=== PATIENT | male | born 1960 | race African-American/Black ===

== ENCOUNTER 2017-08-24 15:48 | Inpatient (IN) | payer OTHER ==
[2017-08-24 16:59] VITALS: BMI 26.2
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
[2017-08-24] MEDS ORDERED: CYCLOBENZAPRINE HCL 5 MG TABLET PO PRN (21:07)
[2017-08-24] MEDS ORDERED: MAGNESIUM CITRATE 300 ML BOTTLE PO PRN (21:10)
[2017-08-24] MEDS ORDERED: NICOTINE POLACRILEX 2 MG GUM BC PRN (21:10)
[2017-08-24] MEDS ORDERED: P-EPHED 60MG/TRIPROLIDI 2.5MG TABLET PO PRN (21:10)
[2017-08-24] MEDS ORDERED: LOPERAMIDE HCL 2 MG CAPSULE PO PRN (21:10)
[2017-08-24] MEDS ORDERED: MAG HYDROX/AL HYDROX/SIMETH 30 ML UNIT-DOSE CUP PO PRN (21:10)
[2017-08-24] MEDS ORDERED: MENTHOL/PHENOL 1 EACH UD MM PRN (21:10)
[2017-08-24] MEDS ORDERED: guaiFENesin/D-METHORPHAN HB 10 ML UNIT-DOSE CUPS PO PRN (21:10)
[2017-08-24] MEDS: THIAMINE HCL 100 MG TABLET (FP) PO SCH (23:39)
[2017-08-24] MEDS: hydrOXYzine PAMOATE 50 MG CAPSULE (FP) PO PRN (23:42)
[2017-08-24] MEDS: MELATONIN 5 MG TABLETS PO PRN (23:42)
[2017-08-24] MEDS: IBUPROFEN 600 MG TABLET (FP) PO PRN (23:43)
[2017-08-24] MEDS: LIDOCAINE 5% TOPICAL PATCH TP SCH (23:49)
[2017-08-24] MEDS: HYDROCORTISONE 0.5% TOPICAL OINTMENT TUBE TP SCH (23:49)
[2017-08-24] MEDS: LIDOCAINE PATCH REMOVAL MC SCH (23:50)
[2017-08-25] LABS: URINE APPEARANCE CLEAR; URINE BILIRUBIN NEGATIVE (<2.0 mg/dL); URINE COLOR YELLOW; URINE GLUCOSE (UA) NEGATIVE (NEGATIVE); URINE KETONE TRACE (NEGATIVE); URINE LEUK ESTERASE NEGATIVE (NEGATIVE); URINE NITRITE NEGATIVE (NEGATIVE); URINE PROTEIN NEGATIVE (NEGATIVE); URINE UROBILINOGEN NEGATIVE mg/dL (0.2-1.0)
[2017-08-25] MEDS ORDERED: TUBERCULIN PPD 5 TU/0.1ML VIAL ID ONE (00:32)
[2017-08-25] MEDS: hydrOXYzine PAMOATE 50 MG CAPSULE (FP) PO PRN (07:38)
[2017-08-25] MEDS: IBUPROFEN 600 MG TABLET (FP) PO PRN (07:38)
[2017-08-25] MEDS: NICOTINE 14 MG/24 HOURS TOPICAL PATCH TD SCH (09:49)
[2017-08-25] MEDS: NIFEdipine E.R. 90 MG TABLET (FP) PO SCH (09:49)
[2017-08-25] MEDS: PRENATAL VITAMINS W/ FOLIC ACID TABLET (FP) PO SCH (09:49)
[2017-08-25] MEDS: LIDOCAINE 5% TOPICAL PATCH TP SCH (09:50)
[2017-08-25] MEDS: HYDROCORTISONE 0.5% TOPICAL OINTMENT TUBE TP SCH ×2 (09:50→21:36)
[2017-08-25 10:05] LABS: HEMATOCRIT 37.1 % (35.4-49); HEMOGLOBIN 12.5 GM/dL (11.7-16.9); MCH 29.7 pg (25.7-33.7); MCHC 33.6 g/dl (32.0-35.9); MEAN CELL VOLUME 88.4 fl (80-96); MEAN PLT VOLUME 7.6 fl (7.5-11.1); PLATELET COUNT 301 K/MM3 (134-434); RDW 15.7 % (11.9-15.9); WHITE BLOOD COUNT 7.2 K/mm3 (4.0-10.0)
[2017-08-25 10:21] LABS: ALBUMIN 3.9 g/dl (3.4-5.0); ANION GAP 8 (8-16); BILIRUBIN,TOTAL 0.2 mg/dL (0.2-1.0); BLOOD UREA NITROGEN 19 mg/dL (7-18); CALCIUM 10.5 mg/dL (8.5-10.1); CHLORIDE 106 mmol/L (98-107); CO2 26 mmol/L (21-32); CREATININE 0.9 mg/dL (0.7-1.3); GLUCOSE,RANDOM 118 mg/dL (74-106); POTASSIUM 4.2 mmol/L (3.5-5.1); SGOT/AST 16 U/L (15-37); SGPT/ALT 26 U/L (12-78); SODIUM 140 mmol/L (136-145)
[2017-08-25 10:22] LABS: ALK PHOS 84 U/L (45-117); TOT PROT 7.8 g/dl (6.4-8.2)
--- NOTE | 2017-08-25 13:31 | EKG ---
Test Reason : Blood Pressure : / mmHG Vent. Rate : 083 BPM Atrial Rate : 083 BPM P-R Int : 144 ms QRS Dur : 088 ms QT Int : 390 ms P-R-T Axes : 060 017 023 degrees QTc Int : 458 ms NORMAL SINUS RHYTHM NORMAL ECG NO PREVIOUS ECGS AVAILABLE Confirmed by GUILLERMINA MAYA MD ([id number]) on 08/25/2017 1:31:14 PM Referred By: Confirmed By:GUILLERMINA MAYA MD
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
[2017-08-25] MEDS ORDERED: ONDANSETRON *ODT* 4 MG TABLET SL ONE (15:15)
[2017-08-25] MEDS ORDERED: ONDANSETRON *ODT* 4 MG TABLET SL PRN (15:15)
--- NOTE | 2017-08-25 15:19 | PN ---
BHS Progress Note (SOAP) Subjective: c/o opioid with alcohol withdrwwal sx at ths time, consitpation refusing suboxoen mat Objective: 08/25/17 15:18 Vital Signs - 24 hr 08/24/17 08/25/17 08/25/17 16:57 00:38 00:40 Temperature 98.3 F 99.9 F H Pulse Rate 75 107 H Respiratory 20 20 18 Rate Blood Pressure 169/98 147/93 08/25/17 08/25/17 03:30 07:03 Temperature 98.2 F Pulse Rate 88 Respiratory 18 18 Rate Blood Pressure 143/87 Laboratory Tests 08/24/17 08/25/17 08/25/17 22:30 08:35 08:35 WBC 7.2 RBC 4.20 Hgb 12.5 Hct 37.1 MCV 88.4 MCH 29.7 MCHC 33.6 RDW 15.7 Plt Count 301 MPV 7.6 D Sodium 140 Potassium 4.2 Chloride 106 Carbon Dioxide 26 Anion Gap 8 BUN 19 H D Creatinine 0.9 Creat Clearance w eGFR > 60 Random Glucose 118 H Calcium 10.5 H Total Bilirubin 0.2 D AST 16 ALT 26 D Alkaline Phosphatase 84 Total Protein 7.8 Albumin 3.9 Urine Color Yellow Urine Appearance Clear Urine pH 5.0 Ur Specific [place] 1.018 Urine Protein Negative Urine Glucose (UA) Negative Urine Ketones Trace H Urine Blood Negative Urine Nitrite Negative Urine Bilirubin Negative Urine Urobilinogen Negative Ur Leukocyte Esterase Negative NAD, a and ox3 Assessment: 08/25/17 15:18 protracted withdrwal sx, zofranprn, flexeril, colace, sympotmatic relief s patient refusing mat ordere, fluids, ensure as per patietn request.
[2017-08-25] MEDS: CYCLOBENZAPRINE HCL 5 MG TABLET PO SCH ×2 (16:24→21:35)
[2017-08-25] MEDS: PANTOPRAZOLE 40 MG TABLET (FP) PO SCH (16:24)
[2017-08-25] MEDS: DOCUSATE SODIUM 100 MG CAPSULE (FP) PO SCH (21:35)
[2017-08-25] MEDS: NAPROXEN 500 MG TABLET (FP) PO SCH (21:35)
[2017-08-25] MEDS: MIRTAZAPINE 15 MG TABLET (FP) PO SCH (21:35)
[2017-08-25] MEDS: THIAMINE HCL 100 MG TABLET (FP) PO SCH (21:37)
[2017-08-25] MEDS: LIDOCAINE PATCH REMOVAL MC SCH (21:37)
[2017-08-26] MEDS: CYCLOBENZAPRINE HCL 5 MG TABLET PO SCH ×3 (06:39→21:23)
[2017-08-26] MEDS: PRENATAL VITAMINS W/ FOLIC ACID TABLET (FP) PO SCH (10:04)
[2017-08-26] MEDS: NIFEdipine E.R. 90 MG TABLET (FP) PO SCH (10:04)
[2017-08-26] MEDS: NAPROXEN 500 MG TABLET (FP) PO SCH ×2 (10:04→21:23)
[2017-08-26] MEDS: PANTOPRAZOLE 40 MG TABLET (FP) PO SCH (10:04)
[2017-08-26] MEDS: LIDOCAINE 5% TOPICAL PATCH TP SCH (10:05)
[2017-08-26] MEDS: NICOTINE 14 MG/24 HOURS TOPICAL PATCH TD SCH (10:05)
[2017-08-26] MEDS: HYDROCORTISONE 0.5% TOPICAL OINTMENT TUBE TP SCH ×2 (10:07→21:24)
[2017-08-26] MEDS: ACETAMINOPHEN 325 MG TABLET (FP) PO PRN (14:24)
[2017-08-26] MEDS: MAGNESIUM HYDROX 2400MG/30ML ORAL SUSPENSION 30 ML CUP PO PRN (14:26)
[2017-08-26] MEDS: MIRTAZAPINE 15 MG TABLET (FP) PO SCH (21:23)
[2017-08-26] MEDS: THIAMINE HCL 100 MG TABLET (FP) PO SCH (21:23)
[2017-08-26] MEDS: DOCUSATE SODIUM 100 MG CAPSULE (FP) PO SCH (21:23)
[2017-08-26] MEDS: LIDOCAINE PATCH REMOVAL MC SCH (21:24)
[2017-08-27] MEDS: CYCLOBENZAPRINE HCL 5 MG TABLET PO SCH ×3 (07:18→21:12)
[2017-08-27] MEDS: NIFEdipine E.R. 90 MG TABLET (FP) PO SCH (09:34)
[2017-08-27] MEDS: LIDOCAINE 5% TOPICAL PATCH TP SCH (09:34)
[2017-08-27] MEDS: PANTOPRAZOLE 40 MG TABLET (FP) PO SCH (09:34)
[2017-08-27] MEDS: NAPROXEN 500 MG TABLET (FP) PO SCH ×2 (09:34→21:12)
[2017-08-27] MEDS: HYDROCORTISONE 0.5% TOPICAL OINTMENT TUBE TP SCH ×2 (09:35→21:13)
[2017-08-27] MEDS: NICOTINE 14 MG/24 HOURS TOPICAL PATCH TD SCH (09:37)
[2017-08-27] MEDS: PRENATAL VITAMINS W/ FOLIC ACID TABLET (FP) PO SCH (09:37)
[2017-08-27] MEDS: MAGNESIUM HYDROX 2400MG/30ML ORAL SUSPENSION 30 ML CUP PO PRN (11:52)
[2017-08-27] MEDS: DOCUSATE SODIUM 100 MG CAPSULE (FP) PO SCH (21:12)
[2017-08-27] MEDS: MIRTAZAPINE 15 MG TABLET (FP) PO SCH (21:12)
[2017-08-27] MEDS: LIDOCAINE PATCH REMOVAL MC SCH (21:13)
[2017-08-27] MEDS: THIAMINE HCL 100 MG TABLET (FP) PO SCH (21:13)
[2017-08-28] MEDS: CYCLOBENZAPRINE HCL 5 MG TABLET PO SCH ×3 (07:27→21:17)
[2017-08-28] MEDS: PRENATAL VITAMINS W/ FOLIC ACID TABLET (FP) PO SCH (09:44)
[2017-08-28] MEDS: NIFEdipine E.R. 90 MG TABLET (FP) PO SCH (09:44)
[2017-08-28] MEDS: LIDOCAINE 5% TOPICAL PATCH TP SCH (09:44)
[2017-08-28] MEDS: NAPROXEN 500 MG TABLET (FP) PO SCH ×2 (09:44→21:16)
[2017-08-28] MEDS: HYDROCORTISONE 0.5% TOPICAL OINTMENT TUBE TP SCH ×2 (09:45→21:17)
[2017-08-28] MEDS: PANTOPRAZOLE 40 MG TABLET (FP) PO SCH (09:47)
[2017-08-28] MEDS: NICOTINE 14 MG/24 HOURS TOPICAL PATCH TD SCH (09:47)
[2017-08-28] MEDS: ACETAMINOPHEN 325 MG TABLET (FP) PO PRN (14:04)
[2017-08-28] MEDS: MIRTAZAPINE 15 MG TABLET (FP) PO SCH (21:16)
[2017-08-28] MEDS: THIAMINE HCL 100 MG TABLET (FP) PO SCH (21:16)
[2017-08-28] MEDS: MELATONIN 5 MG TABLETS PO PRN (21:17)
[2017-08-28] MEDS: DOCUSATE SODIUM 100 MG CAPSULE (FP) PO SCH (21:17)
[2017-08-28] MEDS: LIDOCAINE PATCH REMOVAL MC SCH (21:19)
[2017-08-29] MEDS: CYCLOBENZAPRINE HCL 5 MG TABLET PO SCH ×3 (06:41→21:26)
[2017-08-29] MEDS: NAPROXEN 500 MG TABLET (FP) PO SCH ×2 (10:31→21:26)
[2017-08-29] MEDS: PRENATAL VITAMINS W/ FOLIC ACID TABLET (FP) PO SCH (10:31)
[2017-08-29] MEDS: HYDROCORTISONE 0.5% TOPICAL OINTMENT TUBE TP SCH ×2 (10:31→21:26)
[2017-08-29] MEDS: PANTOPRAZOLE 40 MG TABLET (FP) PO SCH (10:31)
[2017-08-29] MEDS: NIFEdipine E.R. 90 MG TABLET (FP) PO SCH (10:31)
[2017-08-29] MEDS: NICOTINE 14 MG/24 HOURS TOPICAL PATCH TD SCH (10:32)
[2017-08-29] MEDS: LIDOCAINE 5% TOPICAL PATCH TP SCH (10:32)
[2017-08-29] MEDS: MIRTAZAPINE 15 MG TABLET (FP) PO SCH (21:26)
[2017-08-29] MEDS: MELATONIN 5 MG TABLETS PO PRN (21:26)
[2017-08-29] MEDS: DOCUSATE SODIUM 100 MG CAPSULE (FP) PO SCH (21:26)
[2017-08-29] MEDS: LIDOCAINE PATCH REMOVAL MC SCH (21:27)
[2017-08-29] MEDS: THIAMINE HCL 100 MG TABLET (FP) PO SCH (21:28)
[2017-08-30] MEDS: CYCLOBENZAPRINE HCL 5 MG TABLET PO SCH ×3 (06:38→21:20)
[2017-08-30] MEDS: NAPROXEN 500 MG TABLET (FP) PO SCH ×2 (09:45→21:20)
[2017-08-30] MEDS: NIFEdipine E.R. 90 MG TABLET (FP) PO SCH (09:45)
[2017-08-30] MEDS: PRENATAL VITAMINS W/ FOLIC ACID TABLET (FP) PO SCH (09:45)
[2017-08-30] MEDS: PANTOPRAZOLE 40 MG TABLET (FP) PO SCH (09:45)
[2017-08-30] MEDS: NICOTINE 14 MG/24 HOURS TOPICAL PATCH TD SCH (09:46)
[2017-08-30] MEDS: LIDOCAINE 5% TOPICAL PATCH TP SCH (09:47)
[2017-08-30] MEDS: HYDROCORTISONE 0.5% TOPICAL OINTMENT TUBE TP SCH ×2 (09:47→21:21)
[2017-08-30] MEDS: ACETAMINOPHEN 325 MG TABLET (FP) PO PRN (14:25)
[2017-08-30] MEDS: DOCUSATE SODIUM 100 MG CAPSULE (FP) PO SCH (21:20)
[2017-08-30] MEDS: MELATONIN 5 MG TABLETS PO PRN (21:20)
[2017-08-30] MEDS: MIRTAZAPINE 15 MG TABLET (FP) PO SCH (21:20)
[2017-08-30] MEDS: LIDOCAINE PATCH REMOVAL MC SCH (21:21)
[2017-08-30] MEDS: THIAMINE HCL 100 MG TABLET (FP) PO SCH (21:22)
[2017-08-31] MEDS: CYCLOBENZAPRINE HCL 5 MG TABLET PO SCH ×3 (06:10→21:17)
[2017-08-31] MEDS: HYDROCORTISONE 0.5% TOPICAL OINTMENT TUBE TP SCH ×2 (09:53→21:17)
[2017-08-31] MEDS: NICOTINE 14 MG/24 HOURS TOPICAL PATCH TD SCH (09:53)
[2017-08-31] MEDS: PANTOPRAZOLE 40 MG TABLET (FP) PO SCH (09:53)
[2017-08-31] MEDS: NIFEdipine E.R. 90 MG TABLET (FP) PO SCH (09:53)
[2017-08-31] MEDS: LIDOCAINE 5% TOPICAL PATCH TP SCH (09:53)
[2017-08-31] MEDS: NAPROXEN 500 MG TABLET (FP) PO SCH ×2 (09:53→21:17)
[2017-08-31] MEDS: PRENATAL VITAMINS W/ FOLIC ACID TABLET (FP) PO SCH (09:53)
[2017-08-31] MEDS: ACETAMINOPHEN 325 MG TABLET (FP) PO PRN (14:17)
[2017-08-31] MEDS: LIDOCAINE PATCH REMOVAL MC SCH (21:17)
[2017-08-31] MEDS: MELATONIN 5 MG TABLETS PO PRN (21:17)
[2017-08-31] MEDS: DOCUSATE SODIUM 100 MG CAPSULE (FP) PO SCH (21:17)
[2017-08-31] MEDS: MIRTAZAPINE 15 MG TABLET (FP) PO SCH (21:17)
[2017-08-31] MEDS: THIAMINE HCL 100 MG TABLET (FP) PO SCH (21:17)
[2017-09-01] MEDS: CYCLOBENZAPRINE HCL 5 MG TABLET PO SCH ×3 (06:06→21:43)
[2017-09-01] MEDS: PRENATAL VITAMINS W/ FOLIC ACID TABLET (FP) PO SCH (10:08)
[2017-09-01] MEDS: PANTOPRAZOLE 40 MG TABLET (FP) PO SCH (10:08)
[2017-09-01] MEDS: NAPROXEN 500 MG TABLET (FP) PO SCH ×2 (10:08→21:43)
[2017-09-01] MEDS: NIFEdipine E.R. 90 MG TABLET (FP) PO SCH (10:08)
[2017-09-01] MEDS: NICOTINE 14 MG/24 HOURS TOPICAL PATCH TD SCH (10:08)
[2017-09-01] MEDS: LIDOCAINE 5% TOPICAL PATCH TP SCH (10:09)
[2017-09-01] MEDS: HYDROCORTISONE 0.5% TOPICAL OINTMENT TUBE TP SCH ×2 (10:10→21:44)
[2017-09-01] MEDS: MELATONIN 5 MG TABLETS PO PRN (21:43)
[2017-09-01] MEDS: MIRTAZAPINE 15 MG TABLET (FP) PO SCH (21:43)
[2017-09-01] MEDS: THIAMINE HCL 100 MG TABLET (FP) PO SCH (21:43)
[2017-09-01] MEDS: DOCUSATE SODIUM 100 MG CAPSULE (FP) PO SCH (21:43)
[2017-09-01] MEDS: LIDOCAINE PATCH REMOVAL MC SCH (21:44)
[2017-09-02] MEDS: CYCLOBENZAPRINE HCL 5 MG TABLET PO SCH ×3 (06:04→21:29)
[2017-09-02] MEDS: PANTOPRAZOLE 40 MG TABLET (FP) PO SCH (09:43)
[2017-09-02] MEDS: NAPROXEN 500 MG TABLET (FP) PO SCH ×2 (09:43→21:29)
[2017-09-02] MEDS: NIFEdipine E.R. 90 MG TABLET (FP) PO SCH (09:43)
[2017-09-02] MEDS: PRENATAL VITAMINS W/ FOLIC ACID TABLET (FP) PO SCH (09:43)
[2017-09-02] MEDS: HYDROCORTISONE 0.5% TOPICAL OINTMENT TUBE TP SCH ×2 (09:44→21:31)
[2017-09-02] MEDS: LIDOCAINE 5% TOPICAL PATCH TP SCH (09:45)
[2017-09-02] MEDS: NICOTINE 14 MG/24 HOURS TOPICAL PATCH TD SCH (09:46)
[2017-09-02] MEDS: DOCUSATE SODIUM 100 MG CAPSULE (FP) PO SCH (21:29)
[2017-09-02] MEDS: THIAMINE HCL 100 MG TABLET (FP) PO SCH (21:29)
[2017-09-02] MEDS: MELATONIN 5 MG TABLETS PO PRN (21:29)
[2017-09-02] MEDS: MIRTAZAPINE 15 MG TABLET (FP) PO SCH (21:30)
[2017-09-02] MEDS: LIDOCAINE PATCH REMOVAL MC SCH (21:31)
[2017-09-03] MEDS: CYCLOBENZAPRINE HCL 5 MG TABLET PO SCH ×3 (06:39→21:23)
[2017-09-03] MEDS: PANTOPRAZOLE 40 MG TABLET (FP) PO SCH (09:50)
[2017-09-03] MEDS: HYDROCORTISONE 0.5% TOPICAL OINTMENT TUBE TP SCH ×2 (09:50→21:23)
[2017-09-03] MEDS: PRENATAL VITAMINS W/ FOLIC ACID TABLET (FP) PO SCH (09:50)
[2017-09-03] MEDS: NICOTINE 14 MG/24 HOURS TOPICAL PATCH TD SCH (09:50)
[2017-09-03] MEDS: NIFEdipine E.R. 90 MG TABLET (FP) PO SCH (09:50)
[2017-09-03] MEDS: NAPROXEN 500 MG TABLET (FP) PO SCH ×2 (09:50→21:21)
[2017-09-03] MEDS: LIDOCAINE 5% TOPICAL PATCH TP SCH (09:51)
[2017-09-03] MEDS: MELATONIN 5 MG TABLETS PO PRN (21:21)
[2017-09-03] MEDS: MIRTAZAPINE 15 MG TABLET (FP) PO SCH (21:21)
[2017-09-03] MEDS: DOCUSATE SODIUM 100 MG CAPSULE (FP) PO SCH (21:21)
[2017-09-03] MEDS: THIAMINE HCL 100 MG TABLET (FP) PO SCH (21:22)
[2017-09-03] MEDS: LIDOCAINE PATCH REMOVAL MC SCH (21:23)
[2017-09-04] MEDS: ACETAMINOPHEN 325 MG TABLET (FP) PO PRN (06:00)
[2017-09-04] MEDS: CYCLOBENZAPRINE HCL 5 MG TABLET PO SCH ×3 (06:00→21:23)
[2017-09-04] MEDS: PRENATAL VITAMINS W/ FOLIC ACID TABLET (FP) PO SCH (09:42)
[2017-09-04] MEDS: PANTOPRAZOLE 40 MG TABLET (FP) PO SCH (09:42)
[2017-09-04] MEDS: NIFEdipine E.R. 90 MG TABLET (FP) PO SCH (09:42)
[2017-09-04] MEDS: NAPROXEN 500 MG TABLET (FP) PO SCH ×2 (09:42→21:23)
[2017-09-04] MEDS: HYDROCORTISONE 0.5% TOPICAL OINTMENT TUBE TP SCH ×2 (09:42→21:25)
[2017-09-04] MEDS: LIDOCAINE 5% TOPICAL PATCH TP SCH (09:43)
[2017-09-04] MEDS: NICOTINE 14 MG/24 HOURS TOPICAL PATCH TD SCH (09:43)
[2017-09-04] MEDS: DOCUSATE SODIUM 100 MG CAPSULE (FP) PO SCH (21:23)
[2017-09-04] MEDS: MIRTAZAPINE 15 MG TABLET (FP) PO SCH (21:23)
[2017-09-04] MEDS: THIAMINE HCL 100 MG TABLET (FP) PO SCH (21:24)
[2017-09-04] MEDS: MELATONIN 5 MG TABLETS PO PRN (21:24)
[2017-09-04] MEDS: LIDOCAINE PATCH REMOVAL MC SCH (21:25)
[2017-09-05] MEDS: CYCLOBENZAPRINE HCL 5 MG TABLET PO SCH ×3 (06:04→21:29)
[2017-09-05] MEDS: NAPROXEN 500 MG TABLET (FP) PO SCH ×2 (09:40→21:30)
[2017-09-05] MEDS: PANTOPRAZOLE 40 MG TABLET (FP) PO SCH (09:40)
[2017-09-05] MEDS: NIFEdipine E.R. 90 MG TABLET (FP) PO SCH (09:40)
[2017-09-05] MEDS: PRENATAL VITAMINS W/ FOLIC ACID TABLET (FP) PO SCH (09:40)
[2017-09-05] MEDS: HYDROCORTISONE 0.5% TOPICAL OINTMENT TUBE TP SCH ×2 (09:40→21:31)
[2017-09-05] MEDS: LIDOCAINE 5% TOPICAL PATCH TP SCH (09:41)
[2017-09-05] MEDS: NICOTINE 14 MG/24 HOURS TOPICAL PATCH TD SCH (09:42)
[2017-09-05] MEDS: MIRTAZAPINE 15 MG TABLET (FP) PO SCH (21:29)
[2017-09-05] MEDS: MELATONIN 5 MG TABLETS PO PRN (21:29)
[2017-09-05] MEDS: DOCUSATE SODIUM 100 MG CAPSULE (FP) PO SCH (21:29)
[2017-09-05] MEDS: THIAMINE HCL 100 MG TABLET (FP) PO SCH (21:29)
[2017-09-05] MEDS: LIDOCAINE PATCH REMOVAL MC SCH (21:31)
[2017-09-06] MEDS: ACETAMINOPHEN 325 MG TABLET (FP) PO PRN (06:01)
[2017-09-06] MEDS: CYCLOBENZAPRINE HCL 5 MG TABLET PO SCH ×3 (06:01→21:15)
[2017-09-06] MEDS: LIDOCAINE 5% TOPICAL PATCH TP SCH (10:11)
[2017-09-06] MEDS: NICOTINE 14 MG/24 HOURS TOPICAL PATCH TD SCH (10:11)
[2017-09-06] MEDS: PANTOPRAZOLE 40 MG TABLET (FP) PO SCH (10:11)
[2017-09-06] MEDS: NAPROXEN 500 MG TABLET (FP) PO SCH ×2 (10:11→21:15)
[2017-09-06] MEDS: NIFEdipine E.R. 90 MG TABLET (FP) PO SCH (10:11)
[2017-09-06] MEDS: PRENATAL VITAMINS W/ FOLIC ACID TABLET (FP) PO SCH (10:11)
[2017-09-06] MEDS: HYDROCORTISONE 0.5% TOPICAL OINTMENT TUBE TP SCH ×2 (10:12→21:16)
[2017-09-06] MEDS: THIAMINE HCL 100 MG TABLET (FP) PO SCH (21:15)
[2017-09-06] MEDS: MIRTAZAPINE 15 MG TABLET (FP) PO SCH (21:15)
[2017-09-06] MEDS: MELATONIN 5 MG TABLETS PO PRN (21:15)
[2017-09-06] MEDS: LIDOCAINE PATCH REMOVAL MC SCH (21:16)
[2017-09-06] MEDS: DOCUSATE SODIUM 100 MG CAPSULE (FP) PO SCH (21:16)
[2017-09-07] MEDS: CYCLOBENZAPRINE HCL 5 MG TABLET PO SCH (05:59)
[2017-09-07] MEDS: ACETAMINOPHEN 325 MG TABLET (FP) PO PRN (06:00)
[2017-09-07 06:36] VITALS: TEMP 98.4
[2017-09-07] MEDS: NAPROXEN 500 MG TABLET (FP) PO SCH (09:21)
[2017-09-07] MEDS: NIFEdipine E.R. 90 MG TABLET (FP) PO SCH (09:21)
[2017-09-07] MEDS: PANTOPRAZOLE 40 MG TABLET (FP) PO SCH (09:21)
[2017-09-07] MEDS: PRENATAL VITAMINS W/ FOLIC ACID TABLET (FP) PO SCH (09:21)
[2017-09-07] MEDS: NICOTINE 14 MG/24 HOURS TOPICAL PATCH TD SCH (09:21)
[2017-09-07] MEDS: LIDOCAINE 5% TOPICAL PATCH TP SCH (09:21)
[2017-09-07] MEDS: HYDROCORTISONE 0.5% TOPICAL OINTMENT TUBE TP SCH (09:21)
--- NOTE | 2017-09-07 10:02 | PN ---
Psychiatric Progress Note Vital Signs: Vital Signs Period Temp Pulse Resp BP Sys/Moon Pulse Ox Last 24 Hr 98.4 F 97-102 - 135-138/86-86 Date of Session: 09/07/17 Chief Complaint:: discharge visit HPI: The patient has addressed alcohol, opioid,nicotine dependence comorbid MDD , drug induced sleep disorder. ROS: HTN, osteoarthritis and back pain medically managed. Current Medications: Active Medications Generic Name Dose Route Start Last Admin Trade Name Freq PRN Reason Stop Dose Admin Acetaminophen 650 mg 08/24/17 21:10 09/07/17 06:00 Tylenol - PO 650 mg Q4H PRN Administration FEVER Al Hydroxide/Mg Hydroxide 30 ml 08/24/17 21:10 Mylanta Oral Suspension - PO Q6H PRN DYSPEPSIA Cyclobenzaprine HCl 5 mg 08/24/17 21:07 08/25/17 07:37 Cyclobenzaprine Hcl PO 5 mg TID PRN Administration BACK PAIN Cyclobenzaprine HCl 5 mg 08/25/17 15:30 09/07/17 05:59 Cyclobenzaprine Hcl PO 5 mg TID MAURA Administration Docusate Sodium 300 mg 08/25/17 22:00 09/06/17 21:16 Colace - PO Not Given HS MAURA Eucalyptus/Menthol/Phenol/Sorbitol 1 each 08/24/17 21:10 Cepastat Lozenge - MM Q4H PRN SORE THROAT Guaifenesin 10 ml 08/24/17 21:10 Robitussin Dm - PO Q6H PRN COUGH Hydrocortisone 1 applic 08/24/17 22:00 09/07/17 09:21 Hytone 0.5% Ointment - TP Not Given BID MAURA Hydroxyzine Pamoate 50 mg 08/24/17 21:10 08/25/17 07:38 Vistaril - PO 50 mg Q4H PRN Administration AGITATION Lidocaine 1 patch 08/24/17 21:15 09/07/17 09:21 Lidoderm Patch - TP Not Given DAILY MAURA Loperamide HCl 4 mg 08/24/17 21:10 Imodium - PO Q6H PRN DIARRHEA Magnesium Citrate 300 ml 08/24/17 21:10 Citroma - PO Q48H PRN CONSTIPATION Magnesium Hydroxide 30 ml 08/24/17 21:10 08/27/17 11:52 Milk Of Magnesia - PO 30 ml DAILY PRN Administration CONSTIPATION Melatonin 5 mg 08/24/17 22:00 09/06/17 21:15 Melatonin PO 5 mg HS PRN Administration INSOMNIA Mirtazapine 15 mg 08/25/17 22:00 09/06/17 21:15 Remeron - PO 15 mg HS MAURA Administration Miscellaneous 1 each 08/24/17 22:00 09/06/17 21:16 Lidoderm Patch Removal MC Not Given DAILY@2200 MAURA Naproxen 500 mg 08/25/17 22:00 09/07/17 09:21 Naprosyn - PO 500 mg BID MAURA Administration Nicotine 14 mg 08/25/17 10:00 09/07/17 09:21 Nicoderm Patch - TD Not Given DAILY MAURA Nicotine Polacrilex 2 mg 08/24/17 21:10 Nicorette Gum - BC Q2H PRN NICOTINE REPLACEMENT RX Nifedipine 90 mg 08/25/17 10:00 09/07/17 09:21 Procardia Xl - PO 90 mg DAILY MAURA Administration Ondansetron HCl 8 mg 08/25/17 15:15 Zofran Odt - SL Q6H PRN NAUSEA AND/OR VOMITING Pantoprazole Sodium 40 mg 08/25/17 15:30 09/07/17 09:21 Protonix - PO 40 mg DAILY MAURA Administration Multivit/Folic Acid/Iron 1 tab 08/25/17 10:00 09/07/17 09:21 Vitamins (Sjr) - PO 1 tab DAILY MAURA Administration Pseudoephedrine/Triprolidine 1 combo 08/24/17 21:10 Actifed - PO TID PRN NASAL CONGESTION Thiamine HCl 100 mg 08/24/17 22:00 09/06/17 21:15 Vitamin B1 - PO 100 mg HS MAURA Administration Current Side Effect: No Lab tests ordered: No Lab tests reviewed: Yes Provider note:: Patient has completed this program today and met his treatment goals, will continue to asddressed issues on outpatient basis at [facility]. Patient continues to find that current medicationsRemeron 15 mg po hs help to cope with depression and insomnia. Scrips for 30 days provided. Patient identifies areas of difficulties and behaviors which contribute to relapse. Support system, coping skills utilization of supports been discussed with the patient, patient is stable for discharge today. Total face to face time:: 20 Mental Status Exam - Mental Status Exam Alert and Oriented to: Time, Place, Person Cognitive Function: Good Patient Appearance: Well Groomed Mood: Hopeful Affect: Appropriate, Mood Congruent Patient Behavior: Appropriate, Cooperative Speech Pattern: Clear, Appropriate Voice Loudness: Normal Thought Process: Intact, Goal Oriented Thought Disorder: Not Present Hallucinations: Denies Suicidal Ideation: Denies Homicidal Ideation: Denies Insight/Judgement: Fair Sleep: Fair Appetite: Good Muscle strength/Tone: Normal Gait/Station: Normal Psychiatric Treatment Plan - Problem List (2) Opioid dependence Qualifiers: Substance use status: uncomplicated Qualified Code(s): F11.20 - Opioid dependence, uncomplicated (3) Back pain Qualifiers: Back pain location: low back pain Chronicity: chronic (4) HTN (hypertension) Qualifiers: Hypertension type: essential hypertension Qualified Code(s): I10 - Essential (primary) hypertension (5) Nicotine dependence Qualifiers: Nicotine product type: cigarettes Substance use status: uncomplicated Qualified Code(s): F17.210 - Nicotine dependence, cigarettes, uncomplicated
[2017-09-07 10:30] VITALS: BP 138/88; PULSE 92
== END 2017-09-07 10:10 | disposition home or self-care (01) | DRG 895 ==
LOC: YASAS 15:48 → Y5N 18:23
PROVIDERS: ADMIT Psychiatry & Neurology Psychiatry; ATTEND Psychiatry & Neurology Psychiatry
PROC: HZ42ZZZ Group Counseling for Substance Abuse Treatment, Cognitive-Behavioral (ICD-10-PCS; principal; 2017-08-24)
DX: F11.20 Opioid dependence, uncomplicated (principal); F10.230 Alcohol dependence with withdrawal, uncomplicated; F33.9 Major depressive disorder, recurrent, unspecified; F17.210 Nicotine dependence, cigarettes, uncomplicated; M54.5 Low back pain; G89.29 Other chronic pain; M19.90 Unspecified osteoarthritis, unspecified site
CPT/HCPCS: 36415; 80053; 81003; 85027; 86593; 93005; 93010; Q0162

== ENCOUNTER 2017-12-19 11:10 | Inpatient (IN) | payer OTHER ==
[2017-12-19 11:24] VITALS: BMI 26.4
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
[2017-12-19] MEDS ORDERED: chlordiazePOXIDE HCL 25 MG CAPSULE PO PRN (15:17)
[2017-12-19] MEDS ORDERED: MAGNESIUM CITRATE 300 ML BOTTLE PO PRN (15:17)
[2017-12-19] MEDS ORDERED: MENTHOL/PHENOL 1 EACH UD MM PRN (15:17)
[2017-12-19] MEDS ORDERED: guaiFENesin/D-METHORPHAN HB 10 ML UNIT-DOSE CUPS PO PRN (15:17)
[2017-12-19] MEDS ORDERED: hydrOXYzine PAMOATE 25 MG CAPSULE (FP) PO PRN (15:17)
[2017-12-19] MEDS ORDERED: MAG HYDROX/AL HYDROX/SIMETH 30 ML UNIT-DOSE CUP PO PRN (15:17)
[2017-12-19] MEDS ORDERED: LOPERAMIDE HCL 2 MG CAPSULE PO PRN (15:17)
[2017-12-19] MEDS ORDERED: P-EPHED 60MG/TRIPROLIDI 2.5MG TABLET PO PRN (15:17)
[2017-12-19] MEDS ORDERED: METHADONE HCL 10 MG TABLET (FOR DETOX USE ONLY) PO ONE ×2 (15:30→23:00)
[2017-12-19] MEDS: NIFEdipine E.R. 90 MG TABLET (FP) PO SCH (17:37)
[2017-12-19] MEDS: NICOTINE 14 MG/24 HOURS TOPICAL PATCH TD SCH (17:37)
[2017-12-19] MEDS: chlordiazePOXIDE HCL 25 MG CAPSULE PO SCH ×2 (17:38→22:22)
[2017-12-19] MEDS: IBUPROFEN 400 MG TABLET (FP) PO PRN (19:39)
[2017-12-19] MEDS: MAGNESIUM HYDROX 2400MG/30ML ORAL SUSPENSION 30 ML CUP PO PRN (21:10)
[2017-12-19] MEDS: MELATONIN 5 MG TABLETS PO PRN (22:22)
[2017-12-19] MEDS: HYDROCORTISONE 0.5% TOPICAL OINTMENT TUBE TP SCH (22:24)
[2017-12-19] MEDS: THIAMINE HCL 100 MG TABLET (FP) PO SCH (22:25)
[2017-12-20 02:31] LABS: URINE APPEARANCE CLEAR; URINE BILIRUBIN NEGATIVE (<2.0 mg/dL); URINE COLOR YELLOW; URINE GLUCOSE (UA) NEGATIVE (NEGATIVE); URINE KETONE NEGATIVE (NEGATIVE); URINE LEUK ESTERASE NEGATIVE (NEGATIVE); URINE NITRITE NEGATIVE (NEGATIVE); URINE PROTEIN NEGATIVE (NEGATIVE); URINE UROBILINOGEN NEGATIVE mg/dL (0.2-1.0)
[2017-12-20] MEDS: chlordiazePOXIDE HCL 25 MG CAPSULE PO SCH ×4 (06:02→22:07)
[2017-12-20] MEDS: MAGNESIUM HYDROX 2400MG/30ML ORAL SUSPENSION 30 ML CUP PO PRN (06:03)
[2017-12-20] MEDS ORDERED: METHADONE HCL 10 MG TABLET (FOR DETOX USE ONLY) PO SCH (10:00)
[2017-12-20] MEDS: PRENATAL VITAMINS W/ FOLIC ACID TABLET (FP) PO SCH (10:44)
[2017-12-20] MEDS: NIFEdipine E.R. 90 MG TABLET (FP) PO SCH (10:44)
[2017-12-20] MEDS: HYDROCORTISONE 0.5% TOPICAL OINTMENT TUBE TP SCH ×2 (10:44→22:42)
[2017-12-20] MEDS: NICOTINE 14 MG/24 HOURS TOPICAL PATCH TD SCH (10:45)
[2017-12-20 11:05] LABS: HEMATOCRIT 37.9 % (35.4-49); HEMOGLOBIN 12.9 GM/dL (11.7-16.9); MCH 30.1 pg (25.7-33.7); MCHC 34.1 g/dl (32.0-35.9); MEAN CELL VOLUME 88.3 fl (80-96); MEAN PLT VOLUME 9.1 fl (7.5-11.1); PLATELET COUNT 255 K/MM3 (134-434); RDW 15.8 % (11.9-15.9); WHITE BLOOD COUNT 6.8 K/mm3 (4.0-10.0)
[2017-12-20 11:21] LABS: CHLORIDE 102 mmol/L (98-107); POTASSIUM 3.4 mmol/L (3.5-5.1); SODIUM 139 mmol/L (136-145)
[2017-12-20 11:32] LABS: ALBUMIN 4.3 g/dl (3.4-5.0); ALK PHOS 96 U/L (45-117); ANION GAP 8 (8-16); BILIRUBIN,TOTAL 0.3 mg/dL (0.2-1.0); BLOOD UREA NITROGEN 9 mg/dL (7-18); CALCIUM 10.8 mg/dL (8.5-10.1); CO2 29 mmol/L (21-32); GLUCOSE,RANDOM 109 mg/dL (74-106); SGOT/AST 22 U/L (15-37); SGPT/ALT 25 U/L (12-78); TOT PROT 8.1 g/dl (6.4-8.2)
--- NOTE | 2017-12-20 12:53 | PN ---
[facility] CIWA - CIWA Score Nausea/Vomitin-No Nausea/No Vomiting Muscle Tremors: 4-Moderate,w/Arms Extend Anxiety: 4-Mod. Anxious/Guarded Agitation: 4-Moderately Restless Paroxysmal Sweats: 1-Minimal Palms Moist Orientation: 0-Oriented Tacttile Disturbances: 0-None Auditory Disturbances: 0-None Visual Disturbances: 0-None Headache: 0-None Present CIWA-Ar Total Score: 13 S COWS - Scale Resting Pulse: 0= MS 80 or Below Sweatin= Chills/Flushing Restless Observation: 3= Extraneous Movement Pupil Size: 0= Normal to Room Light Bone or Joint Aches: 4=Acute Joint/Muscle Pain Runny Nose/ Eye Tearin= None GI Upset > 30mins: 0= None Tremor Observation of Outstretched Hands: 1= Tremor [place], Not Seen Yawning Observation: 1= 1-2x During Session Anxiety or Irritability: 2=Irritable/Anxious Goose Flesh Skin: 0=Smooth Skin COWS Score: 12 [facility] Progress Note (SOAP) Subjective: ANXIETY,SWEATS,BODY ACHES, INTERMITTENT SLEEP. Objective: 12/20/17 12:52 Vital Signs 12/20/17 12/20/17 12/20/17 06:18 06:30 09:30 Temperature 97.5 F L 97.6 F Pulse Rate 74 73 Respiratory 18 18 18 Rate Blood Pressure 107/68 104/69 Laboratory Tests 12/19/17 12/20/17 12/20/17 23:23 06:00 06:00 WBC 6.8 RBC 4.30 Hgb 12.9 Hct 37.9 MCV 88.3 MCH 30.1 MCHC 34.1 RDW 15.8 Plt Count 255 MPV 9.1 D Sodium 139 Potassium 3.4 L Chloride 102 Carbon Dioxide 29 Anion Gap 8 BUN 9 Creatinine 1.0 Creat Clearance w eGFR > 60 Random Glucose 109 H Calcium 10.8 H Total Bilirubin 0.3 AST 22 D ALT 25 Alkaline Phosphatase 96 Total Protein 8.1 Albumin 4.3 Urine Color Yellow Urine Appearance Clear Urine pH 6.0 Ur Specific [place] 1.018 Urine Protein Negative Urine Glucose (UA) Negative Urine Ketones Negative Urine Blood Negative Urine Nitrite Negative Urine Bilirubin Negative Urine Urobilinogen Negative Ur Leukocyte Esterase Negative Assessment: 12/20/17 12:52 WITHDRAWAL SX Plan: CONTINUE DETOX
--- NOTE | 2017-12-20 16:30 | EKG ---
Test Reason : Blood Pressure : / mmHG Vent. Rate : 090 BPM Atrial Rate : 090 BPM P-R Int : 128 ms QRS Dur : 088 ms QT Int : 364 ms P-R-T Axes : 063 024 048 degrees QTc Int : 445 ms NORMAL SINUS RHYTHM NORMAL ECG WHEN COMPARED WITH ECG OF 25-AUG-2017 07:24, NO SIGNIFICANT CHANGE WAS FOUND Confirmed by Philip Martinez MD ([id number]) on 12/20/2017 4:29:17 PM Referred By: Confirmed By:Philip Martinez MD
[2017-12-20] MEDS: IBUPROFEN 400 MG TABLET (FP) PO PRN ×2 (16:35→22:08)
[2017-12-20] MEDS: THIAMINE HCL 100 MG TABLET (FP) PO SCH (22:07)
[2017-12-20] MEDS: MELATONIN 5 MG TABLETS PO PRN (22:07)
[2017-12-21] MEDS: chlordiazePOXIDE HCL 25 MG CAPSULE PO SCH ×2 (05:49→10:11)
[2017-12-21] MEDS: IBUPROFEN 400 MG TABLET (FP) PO PRN ×3 (07:37→22:02)
[2017-12-21] MEDS: NIFEdipine E.R. 90 MG TABLET (FP) PO SCH (10:07)
[2017-12-21] MEDS: PRENATAL VITAMINS W/ FOLIC ACID TABLET (FP) PO SCH (10:07)
[2017-12-21] MEDS: HYDROCORTISONE 0.5% TOPICAL OINTMENT TUBE TP SCH ×2 (10:07→22:05)
[2017-12-21] MEDS: METHADONE HCL 5 MG TABLET (FOR DETOX USE ONLY) PO SCH (10:08)
[2017-12-21] MEDS: NICOTINE 14 MG/24 HOURS TOPICAL PATCH TD SCH (10:10)
[2017-12-21] MEDS: LIDOCAINE 5% TOPICAL PATCH TP SCH (10:11)
--- NOTE | 2017-12-21 12:27 | PN ---
S CIWA - CIWA Score Nausea/Vomitin-No Nausea/No Vomiting Muscle Tremors: 4-Moderate,w/Arms Extend Anxiety: 4-Mod. Anxious/Guarded Agitation: 4-Moderately Restless Paroxysmal Sweats: 1-Minimal Palms Moist Orientation: 0-Oriented Tacttile Disturbances: 0-None Auditory Disturbances: 0-None Visual Disturbances: 0-None Headache: 0-None Present CIWA-Ar Total Score: 13 [facility] COWS - Scale Resting Pulse: 0= [place] 80 or Below Sweatin= Chills/Flushing Restless Observation: 3= Extraneous Movement Pupil Size: 0= Normal to Room Light Bone or Joint Aches: 4=Acute Joint/Muscle Pain Runny Nose/ Eye Tearin= None GI Upset > 30mins: 0= None Tremor Observation of Outstretched Hands: 1= Tremor [place], Not Seen Yawning Observation: 1= 1-2x During Session Anxiety or Irritability: 1=Feels Anxious/Irritable Goose Flesh Skin: 0=Smooth Skin COWS Score: 11 [facility] Progress Note (SOAP) Subjective: ANXIETY,CHILLS,BODY AND BACK PAIN,SLUGGISH. Objective: 12/21/17 12:26 Vital Signs 12/21/17 12/21/17 06:25 09:46 Temperature 97.4 F L 98.8 F Pulse Rate 70 70 Respiratory 18 20 Rate Blood Pressure 105/67 130/72 Laboratory Tests 12/19/17 12/20/17 12/20/17 23:23 06:00 06:00 WBC 6.8 RBC 4.30 Hgb 12.9 Hct 37.9 MCV 88.3 MCH 30.1 MCHC 34.1 RDW 15.8 Plt Count 255 MPV 9.1 D Sodium 139 Potassium 3.4 L Chloride 102 Carbon Dioxide 29 Anion Gap 8 BUN 9 Creatinine 1.0 Creat Clearance w eGFR > 60 Random Glucose 109 H Calcium 10.8 H Total Bilirubin 0.3 AST 22 D ALT 25 Alkaline Phosphatase 96 Total Protein 8.1 Albumin 4.3 Urine Color Yellow Urine Appearance Clear Urine pH 6.0 Ur Specific [place] 1.018 Urine Protein Negative Urine Glucose (UA) Negative Urine Ketones Negative Urine Blood Negative Urine Nitrite Negative Urine Bilirubin Negative Urine Urobilinogen Negative Ur Leukocyte Esterase Negative RPR Titer 12/20/17 06:00 WBC RBC Hgb Hct MCV MCH MCHC RDW Plt Count MPV Sodium Potassium Chloride Carbon Dioxide Anion Gap BUN Creatinine Creat Clearance w eGFR Random Glucose Calcium Total Bilirubin AST ALT Alkaline Phosphatase Total Protein Albumin Urine Color Urine Appearance Urine pH Ur Specific [place] Urine Protein Urine Glucose (UA) Urine Ketones Urine Blood Urine Nitrite Urine Bilirubin Urine Urobilinogen Ur Leukocyte Esterase RPR Titer Nonreactive Assessment: 12/21/17 12:26 WITHDRAWAL SX Plan: CONTINUE DETOX HOLD LIBRIUM AT 11 AM TODAY. LIDOCAINE PATCH 5% DIRECTED.
[2017-12-21] MEDS: chlordiazePOXIDE 5 MG CAPSULE PO SCH ×2 (17:19→22:06)
[2017-12-21] MEDS: MELATONIN 5 MG TABLETS PO PRN (22:03)
[2017-12-21] MEDS: THIAMINE HCL 100 MG TABLET (FP) PO SCH (22:03)
[2017-12-21] MEDS: LIDOCAINE PATCH REMOVAL MC SCH (22:18)
[2017-12-22] MEDS: chlordiazePOXIDE 5 MG CAPSULE PO SCH ×2 (05:15→10:48)
[2017-12-22] MEDS: ACETAMINOPHEN 325 MG TABLET (FP) PO PRN (05:16)
[2017-12-22] MEDS: LIDOCAINE 5% TOPICAL PATCH TP SCH (10:45)
[2017-12-22] MEDS: METHADONE HCL 5 MG TABLET (FOR DETOX USE ONLY) PO SCH (10:45)
[2017-12-22] MEDS: HYDROCORTISONE 0.5% TOPICAL OINTMENT TUBE TP SCH ×2 (10:45→22:11)
[2017-12-22] MEDS: NICOTINE 14 MG/24 HOURS TOPICAL PATCH TD SCH (10:46)
[2017-12-22] MEDS: PRENATAL VITAMINS W/ FOLIC ACID TABLET (FP) PO SCH (10:47)
[2017-12-22] MEDS: NIFEdipine E.R. 90 MG TABLET (FP) PO SCH (10:47)
--- NOTE | 2017-12-22 12:29 | PN ---
[facility] Progress Note (SOAP) Subjective: PT REPORTS DETOX PROCEEDING WELL. SLIGHT ANXIETY AND FATIGUE. Objective: 12/22/17 12:27 Vital Signs 12/22/17 12/22/17 06:08 09:27 Temperature 96.8 F L 97.4 F L Pulse Rate 80 91 H Respiratory 18 18 Rate Blood Pressure 119/76 111/76 Laboratory Tests 12/19/17 12/20/17 12/20/17 23:23 06:00 06:00 WBC 6.8 RBC 4.30 Hgb 12.9 Hct 37.9 MCV 88.3 MCH 30.1 MCHC 34.1 RDW 15.8 Plt Count 255 MPV 9.1 D Sodium 139 Potassium 3.4 L Chloride 102 Carbon Dioxide 29 Anion Gap 8 BUN 9 Creatinine 1.0 Creat Clearance w eGFR > 60 Random Glucose 109 H Calcium 10.8 H Total Bilirubin 0.3 AST 22 D ALT 25 Alkaline Phosphatase 96 Total Protein 8.1 Albumin 4.3 Urine Color Yellow Urine Appearance Clear Urine pH 6.0 Ur Specific [place] 1.018 Urine Protein Negative Urine Glucose (UA) Negative Urine Ketones Negative Urine Blood Negative Urine Nitrite Negative Urine Bilirubin Negative Urine Urobilinogen Negative Ur Leukocyte Esterase Negative RPR Titer 12/20/17 06:00 WBC RBC Hgb Hct MCV MCH MCHC RDW Plt Count MPV Sodium Potassium Chloride Carbon Dioxide Anion Gap BUN Creatinine Creat Clearance w eGFR Random Glucose Calcium Total Bilirubin AST ALT Alkaline Phosphatase Total Protein Albumin Urine Color Urine Appearance Urine pH Ur Specific [place] Urine Protein Urine Glucose (UA) Urine Ketones Urine Blood Urine Nitrite Urine Bilirubin Urine Urobilinogen Ur Leukocyte Esterase RPR Titer Nonreactive Assessment: 12/22/17 12:28 WITHDRAWAL SX BORDERLINE HYPOKALEMIA Plan: CONTINUE DETOX POTASSIUM SUPPLEMENTATION DIRECTED.
[2017-12-22] MEDS ORDERED: POTASSIUM CHLORIDE ORAL LIQUID 20 MEQ/15 ML PO ONE (12:55)
[2017-12-22] MEDS: chlordiazePOXIDE HCL 10 MG CAPSULE PO SCH ×2 (17:36→22:10)
[2017-12-22] MEDS: MELATONIN 5 MG TABLETS PO PRN (22:10)
[2017-12-22] MEDS: THIAMINE HCL 100 MG TABLET (FP) PO SCH (22:10)
[2017-12-22] MEDS: IBUPROFEN 400 MG TABLET (FP) PO PRN (22:10)
[2017-12-22] MEDS: LIDOCAINE PATCH REMOVAL MC SCH (22:12)
[2017-12-22] MEDS: POTASSIUM CHLORIDE ORAL LIQUID 20 MEQ/15 ML PO SCH (22:12)
[2017-12-23] MEDS: chlordiazePOXIDE HCL 10 MG CAPSULE PO SCH ×2 (05:49→10:45)
[2017-12-23] MEDS: ACETAMINOPHEN 325 MG TABLET (FP) PO PRN (05:49)
[2017-12-23] MEDS ORDERED: METHADONE HCL 10 MG TABLET (FOR DETOX USE ONLY) PO SCH (10:00)
[2017-12-23] MEDS: POTASSIUM CHLORIDE ORAL LIQUID 20 MEQ/15 ML PO SCH ×2 (10:46→22:10)
[2017-12-23] MEDS: NIFEdipine E.R. 90 MG TABLET (FP) PO SCH (10:46)
[2017-12-23] MEDS: PRENATAL VITAMINS W/ FOLIC ACID TABLET (FP) PO SCH (10:46)
[2017-12-23] MEDS: IBUPROFEN 400 MG TABLET (FP) PO PRN ×2 (10:46→22:11)
[2017-12-23] MEDS: NICOTINE 14 MG/24 HOURS TOPICAL PATCH TD SCH (10:46)
[2017-12-23] MEDS: LIDOCAINE 5% TOPICAL PATCH TP SCH (10:47)
[2017-12-23] MEDS: HYDROCORTISONE 0.5% TOPICAL OINTMENT TUBE TP SCH ×2 (10:47→22:33)
--- NOTE | 2017-12-23 12:56 | PN ---
[facility] Progress Note (SOAP) Subjective: DETOX PROCEEDING PER PROTOCOL. C/O "SWEATS AND ACHES". Objective: 12/23/17 12:55 Vital Signs 12/23/17 12/23/17 06:08 09:32 Temperature 96.4 F L 97.2 F L Pulse Rate 84 80 Respiratory 18 16 Rate Blood Pressure 113/67 121/75 Laboratory Tests 12/19/17 12/20/17 12/20/17 23:23 06:00 06:00 WBC 6.8 RBC 4.30 Hgb 12.9 Hct 37.9 MCV 88.3 MCH 30.1 MCHC 34.1 RDW 15.8 Plt Count 255 MPV 9.1 D Sodium 139 Potassium 3.4 L Chloride 102 Carbon Dioxide 29 Anion Gap 8 BUN 9 Creatinine 1.0 Creat Clearance w eGFR > 60 Random Glucose 109 H Calcium 10.8 H Total Bilirubin 0.3 AST 22 D ALT 25 Alkaline Phosphatase 96 Total Protein 8.1 Albumin 4.3 Urine Color Yellow Urine Appearance Clear Urine pH 6.0 Ur Specific [place] 1.018 Urine Protein Negative Urine Glucose (UA) Negative Urine Ketones Negative Urine Blood Negative Urine Nitrite Negative Urine Bilirubin Negative Urine Urobilinogen Negative Ur Leukocyte Esterase Negative RPR Titer 12/20/17 06:00 WBC RBC Hgb Hct MCV MCH MCHC RDW Plt Count MPV Sodium Potassium Chloride Carbon Dioxide Anion Gap BUN Creatinine Creat Clearance w eGFR Random Glucose Calcium Total Bilirubin AST ALT Alkaline Phosphatase Total Protein Albumin Urine Color Urine Appearance Urine pH Ur Specific [place] Urine Protein Urine Glucose (UA) Urine Ketones Urine Blood Urine Nitrite Urine Bilirubin Urine Urobilinogen Ur Leukocyte Esterase RPR Titer Nonreactive Assessment: 12/23/17 12:55 DECREASED WITHDRAWAL SX Plan: CONTINUE DETOX
[2017-12-23] MEDS ORDERED: BACITRACIN/POLYMYXIN OPH OINT 3.5 GM TUBE OD ONE (14:43)
[2017-12-23] MEDS ORDERED: NEOMY SULF/BACITRA/POLYMYXIN B OPHTHALMIC OINTMENT 3.5 GM OD ONE (15:35)
[2017-12-23] MEDS ORDERED: BACITRACIN/POLYMYXIN OPH OINT 3.5 GM TUBE OD SCH (22:00)
[2017-12-23] MEDS: MELATONIN 5 MG TABLETS PO PRN (22:09)
[2017-12-23] MEDS: LIDOCAINE PATCH REMOVAL MC SCH (22:10)
[2017-12-23] MEDS: THIAMINE HCL 100 MG TABLET (FP) PO SCH (22:10)
[2017-12-23] MEDS: NEOMY SULF/BACITRA/POLYMYXIN B OPHTHALMIC OINTMENT 3.5 GM OD SCH (22:11)
[2017-12-24] MEDS: IBUPROFEN 400 MG TABLET (FP) PO PRN (05:52)
[2017-12-24] MEDS: NEOMY SULF/BACITRA/POLYMYXIN B OPHTHALMIC OINTMENT 3.5 GM OD SCH (05:53)
[2017-12-24] MEDS ORDERED: METHADONE HCL 5 MG TABLET (FOR DETOX USE ONLY) PO SCH (06:00)
[2017-12-24 06:18] VITALS: BP 113/76; PULSE 78; TEMP 97.8
--- NOTE | 2017-12-24 08:51 | PN ---
[facility] Progress Note (SOAP) Subjective: DETOX COMPLETED. PT STATED HE RECEIVES PRIMARY CARE AT [facility] IN [place], [place]. Objective: 12/24/17 08:50 Vital Signs 12/24/17 12/24/17 03:30 06:17 Temperature 97.8 F Pulse Rate 78 Respiratory 18 18 Rate Blood Pressure 113/76 Laboratory Tests 12/19/17 12/20/17 12/20/17 23:23 06:00 06:00 WBC 6.8 RBC 4.30 Hgb 12.9 Hct 37.9 MCV 88.3 MCH 30.1 MCHC 34.1 RDW 15.8 Plt Count 255 MPV 9.1 D Sodium 139 Potassium 3.4 L Chloride 102 Carbon Dioxide 29 Anion Gap 8 BUN 9 Creatinine 1.0 Creat Clearance w eGFR > 60 Random Glucose 109 H Calcium 10.8 H Total Bilirubin 0.3 AST 22 D ALT 25 Alkaline Phosphatase 96 Total Protein 8.1 Albumin 4.3 Urine Color Yellow Urine Appearance Clear Urine pH 6.0 Ur Specific [place] 1.018 Urine Protein Negative Urine Glucose (UA) Negative Urine Ketones Negative Urine Blood Negative Urine Nitrite Negative Urine Bilirubin Negative Urine Urobilinogen Negative Ur Leukocyte Esterase Negative RPR Titer 12/20/17 06:00 WBC RBC Hgb Hct MCV MCH MCHC RDW Plt Count MPV Sodium Potassium Chloride Carbon Dioxide Anion Gap BUN Creatinine Creat Clearance w eGFR Random Glucose Calcium Total Bilirubin AST ALT Alkaline Phosphatase Total Protein Albumin Urine Color Urine Appearance Urine pH Ur Specific [place] Urine Protein Urine Glucose (UA) Urine Ketones Urine Blood Urine Nitrite Urine Bilirubin Urine Urobilinogen Ur Leukocyte Esterase RPR Titer Nonreactive Assessment: 12/24/17 08:50 MEDICALLY STABLE Plan: D/C'D TODAY
--- NOTE | 2017-12-24 08:52 | DS ---
[facility] Detox Discharge Summary Admission Date: 12/19/17 Discharge Date: 12/24/17 - History Present History: Alcohol Dependence, Opioid Dependence Additional Comments: DETOX COMPLETED. Pertinent Past History: PLEASE SEE DX BELOW - Physical Exam Results Vital Signs: Vital Signs Temperature 97.8 F 12/24/17 06:17 Pulse Rate 78 12/24/17 06:17 Respiratory Rate 18 12/24/17 06:17 Blood Pressure 113/76 12/24/17 06:17 O2 Sat by Pulse Oximetry (%) Pertinent Admission Physical Exam Findings: WITHDRAWAL SX - Treatment Hospital Course: Detox Protocol Followed, Detoxed Safely, Responded well, Discharged Condition Good - Medication Discharge Medications: Ambulatory Orders Hydrocortisone 0.5% Ointment [Hytone 0.5% Ointment -] 1 applic TP BID 02/10/15 Mirtazapine [Remeron -] 15 mg PO HS #30 tablet 04/24/15 Ibuprofen [Motrin -] 600 mg PO Q6H PRN #60 tablet 04/28/15 Nifedipine ER [Procardia XL -] 90 mg PO DAILY #30 tab.er.24 12/22/17 - Diagnosis (1) Alcohol dependence with uncomplicated withdrawal Status: Acute (2) Opioid dependence with withdrawal Status: Acute (3) HTN (hypertension) Status: Chronic Qualifiers: Hypertension type: essential hypertension Qualified Code(s): I10 - Essential (primary) hypertension (4) Nicotine dependence Status: Chronic Qualifiers: Nicotine product type: cigarettes Substance use status: in withdrawal Qualified Code(s): F17.213 - Nicotine dependence, cigarettes, with withdrawal (5) OA (osteoarthritis) Status: Chronic (6) Amputation of fifth toe, left, traumatic Status: Chronic Qualifiers: Encounter type: sequela Qualified Code(s): S98.132S - 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
== END 2017-12-24 06:50 | disposition home or self-care (01) | DRG 897 ==
LOC: YASAS 11:10 → Y3N 16:07 → Y6N 23:28 → Y3N 23:30
PROVIDERS: ADMIT Surgery; ATTEND Surgery
PROC: HZ2ZZZZ Detoxification Services for Substance Abuse Treatment (ICD-10-PCS; principal; 2017-12-19)
DX: F11.23 Opioid dependence with withdrawal (principal); F10.230 Alcohol dependence with withdrawal, uncomplicated; F17.213 Nicotine dependence, cigarettes, with withdrawal; F51.05 Insomnia due to other mental disorder; I10 Essential (primary) hypertension; M19.90 Unspecified osteoarthritis, unspecified site; Z89.422 Acquired absence of other left toe(s); M54.5 Low back pain; G89.29 Other chronic pain; E87.6 Hypokalemia; M21.961 Unspecified acquired deformity of right lower leg
CPT/HCPCS: 36415; 80053; 81003; 85027; 86593; 93005; 93010

== ENCOUNTER 2018-03-22 10:34 | Inpatient (IN) | payer OTHER ==
[2018-03-22 13:09] VITALS: BMI 25.5
--- NOTE | 2018-03-22 14:34 | HP ---
CIWA Score - Admission Criteria [facility] Guidelines: Admission for Medically Managed Detox: Requires at least one of the followin. CIWA greater than 12 2. Seizures within the past 24 hours 3. Delirium tremens within the past 24 hours 4. Hallucinations within the past 24 hours 5. Acute intervention needed for co occurring medical disorder 6. Acute intervention needed for co occurring psychiatric disorder 7. Severe withdrawal that cannot be handled at a lower level of care (continued vomiting, continued diarrhea, abnormal vital signs) requiring intravenous medication and/or fluids 8. Admission ROS [facility] Chief Complaint: PATIENT PRESENTS FOR REHAB SERVICES FOR HEROIN/ETOH DEPENDENCE. Allergies/Adverse Reactions: Allergies Allergy/AdvReac Type Severity Reaction Status Date / Time No Known Drug Allergies Allergy Verified 03/22/18 13:52 COCONUT Allergy Severe Swelling Uncoded 03/22/18 13:52 NKDA Allergy Uncoded 03/22/18 13:52 History of Present Illness: PATIENT PRESENTS FOR REHAB SERVICES FOR HEROIN/ETOH DEPENDENCE. COMPLETED DETOX TODAY AT [facility] AND SENT TO [facility] FOR REHAB. PATIENT HAS HAD MULTIPLE ADMISSIONS TO DETOX THIS YEAR. STARTED USING SNIFFING HEROIN AT AGE 39 , USED UP TO 15 BAGS DAILY. BEGAN DRINKING ETOH DAILY AT AGE 39, DRINKING 6 BEERS DAILY. PATIENT DENIES HX OF OVERDOSE, SEIZURES AND BLACK OUTS. LONGEST PERIOD OF SOBRIETY 10 YEARS. PATIENT PMH INCLUDES DEPRESSION AND HTN. DENIES SI/ HI AND SUICIDE ATTEMPTS. Exam Limitations: No Limitations - Ebola screening Have you traveled outside of the country in the last 21 days: No Have you had contact with anyone from an Ebola affected area: No Have you been sick,other than usual withdrawal symptoms: No Do you have a fever: No - Review of Systems Constitutional: Changes in sleep, Unintentional Wgt. Loss EENT: reports: Nose Congestion Respiratory: reports: No Symptoms reported Cardiac: reports: No Symptoms Reported GI: reports: Constipated, Poor Fluid Intake : reports: No Symptoms Reported Musculoskeletal: reports: Back Pain, Joint Pain Integumentary: reports: No Symptoms Reported Neuro: reports: No Symptoms reported Endocrine: reports: Unexplained Weight Loss Hematology: reports: No Symptoms Reported Psychiatric: reports: Orientated x3, Anxious Patient History - Patient Medical History Hx Anemia: No Hx Asthma: No Hx Chronic Obstructive Pulmonary Disease (COPD): No Hx Cancer: No Hx Cardiac Disorders: No Hx Congestive Heart Failure: No Hx Hypertension: Yes (on med) Hx Hypercholesterolemia: No Hx Pacemaker: No HX Cerebrovascular Accident: No Hx Seizures: No Hx Dementia: No Hx Diabetes: No Hx Gastrointestinal Disorders: No Hx Liver Disease: No Hx Genitourinary Disorders: No Hx Sexually Transmitted Disorders: No Hx Renal Disease (ESRD): No Hx Thyroid Disease: No Hx Human Immunodeficiency Virus (HIV): No (last tested 11/30 negative) Hx Hepatitis C: No Hx Depression: Yes Hx Suicide Attempt: No Hx Bipolar Disorder: No Hx Schizophrenia: No - Patient Surgical History Past Surgical History: Yes Hx Neurologic Surgery: No Hx Cataract Extraction: No Hx Cardiac Surgery: No Hx Lung Surgery: No Hx Breast Surgery: No Hx Breast Biopsy: No Hx Abdominal Surgery: No Hx Appendectomy: No Hx Cholecystectomy: No Hx Genitourinary Surgery: No Hx Orthopedic Surgery: Yes (right lower leg at age 39) Other Surgical History: fx of right leg at age [age] years old;SKIN GRAFT LEFT LEG TO RIGHT LEG Anesthesia Reaction: No - PPD History Previous Implant?: Yes Documented Results: Negative w/proof Implanted On Prior R Admission?: Yes Date: 08/26/17 Results: NEGATIVE PPD to be Administered?: No - Smoking Cessation Smoking history: Current every day smoker Have you smoked in the past 12 months: Yes Aproximately how many cigarettes per day: 4 Cigars Per Day: 0 Hx Chewing Tobacco Use: No Initiated information on smoking cessation: Yes 'Breaking Loose' booklet given: 03/22/18 - Substance & Tx. History Hx Alcohol Use: Yes Hx Substance Use: Yes Substance Use Type: Alcohol, Heroin Hx Substance Use Treatment: Yes - Substances Abused Alcohol Route: Oral Frequency: Daily Amount used: 1 -6 PACK BEER (8 OUNCES) Age of first use: 16 Date of Last Use: 03/17/18 Heroin Route: Inhalation Frequency: Daily Amount used: 10-15 BAGS Age of first use: 39 Date of Last Use: 03/17/18 Family Disease History - Family Disease History Family Disease History: CA: Father (throat ca- ), Other: Mother ( glaucoma ) Admission Physical Exam [facility] - Vital Signs Vital Signs: Vital Signs - 24 hr 03/22/18 13:07 Temperature 98.7 F Pulse Rate 88 Respiratory 18 Rate Blood Pressure 133/87 - Physical General Appearance: Yes: No Apparent Distress, Appropriately Dressed HEENTM: Yes: EOMI, Hearing grossly Normal, Normocephalic, Normal Voice, UMM, Pharynx Normal, Nasal Congestion Respiratory: Yes: Chest Non-Tender, Lungs Clear, Normal Breath Sounds, No Respiratory Distress, No Accessory Muscle Use Neck: Yes: No masses,lesions,Nodules, Supple, Trachea in good position Breast: Yes: Breast Exam Deferred Cardiology: Yes: Regular Rhythm, Regular Rate, S1, S2 Abdominal: Yes: Normal Bowel Sounds, Non Tender, Soft Genitourinary: Yes: Within Normal Limits Back: Yes: Muscle Spasm Musculoskeletal: Yes: full range of Motion, Gait Steady, Back pain, Muscle Pain Extremities: Yes: Normal Inspection, Normal Range of Motion, Non-Tender, Amputation (LEFT 5TH TOE) Neurological: Yes: garde manager II-XII NML intact, Fully Oriented, Alert, Motor Strength 5/5, Normal Response, Depressed Affect Integumentary: Yes: Normal Color, Dry, Warm Lymphatic: Yes: Within Normal Limits Cleared for Admission [facility] - Detox or Rehab Claeared for Rehab Admission: Yes [facility] Breath Alcohol Content Breath Alcohol Content: 0 Urine Drug Screen - Results Drug Screen Negative: No Urine Drug Screen Results: BZO-Benzodiazepines, MTD-Methadone Inpatient Rehab Admission - Initial Determination Are CD services needed?: Yes Free of communicable disease: Yes Not in need of hospitalization: Yes - Rehab Admission Criteria Previous failed treatment: Yes Poor recovery environment: Yes Comorbidities: Yes Lacks judgement: Yes Patient is meeting Inpatient Rehab admission criteria:: Yes
[2018-03-22] MEDS ORDERED: P-EPHED 60MG/TRIPROLIDI 2.5MG TABLET PO PRN (14:41)
[2018-03-22] MEDS ORDERED: MENTHOL/PHENOL 1 EACH UD MM PRN (14:41)
[2018-03-22] MEDS ORDERED: MAG HYDROX/AL HYDROX/SIMETH 30 ML UNIT-DOSE CUP PO PRN (14:41)
[2018-03-22] MEDS ORDERED: LOPERAMIDE HCL 2 MG CAPSULE PO PRN (14:41)
[2018-03-22] MEDS ORDERED: guaiFENesin/D-METHORPHAN HB 10 ML UNIT-DOSE CUPS PO PRN (14:41)
[2018-03-22] MEDS ORDERED: NICOTINE POLACRILEX 2 MG GUM BUC PRN (14:41)
[2018-03-22] MEDS ORDERED: hydrOXYzine PAMOATE 50 MG CAPSULE (FP) PO PRN (14:41)
[2018-03-22] MEDS ORDERED: ACETAMINOPHEN 325 MG TABLET (FP) PO PRN (14:41)
[2018-03-22] MEDS ORDERED: MAGNESIUM CITRATE 300 ML BOTTLE PO PRN (14:41)
--- NOTE | 2018-03-22 16:44 | HP ---
Psychiatrist Admission - Data Date of interview: 03/22/18 Admission source: [facility] Identifying data: This is the second admission to [address] [place] [address] for this 57 years old male single father of 6,reides alone,supported by SSD. Medical History: HTN Psychiatric History: denies Physical/Sexual Abuse/Trauma History: denies Vital Signs: Vital Signs - 24 hr 03/22/18 13:07 Temperature 98.7 F Pulse Rate 88 Respiratory 18 Rate Blood Pressure 133/87 Allergies/Adverse Reactions: Allergies Allergy/AdvReac Type Severity Reaction Status Date / Time No Known Drug Allergies Allergy Verified 03/22/18 13:52 COCONUT Allergy Severe Swelling Uncoded 03/22/18 13:52 NKDA Allergy Uncoded 03/22/18 13:52 Date of last physical exam: 03/22/18 Concur with the findings of this exam: Yes - Substance Abuse/Tx History Hx Alcohol Use: Yes (reports drinking since 39 yo) Hx Substance Use: Yes (heroin since 39 (sniffing)) Substance Use Type: Alcohol, Heroin Hx Substance Use Treatment: Yes (completed this program in 2017) Mental Status Exam - Mental Status Exam Alert and Oriented to: Time, Place, Person Cognitive Function: Grossly Intact Patient Appearance: Well Groomed Mood: Euthymic Affect: Mood Congruent Patient Behavior: Cooperative Speech Pattern: Clear Voice Loudness: Normal Thought Process: Goal Oriented Thought Disorder: Not Present Hallucinations: Denies Suicidal Ideation: Denies Homicidal Ideation: Denies Insight/Judgement: Fair Sleep: Difficulty falling asleep Appetite: Good Muscle strength/Tone: Normal Gait/Station: Normal Psychiatric Findings - Problem List ([place] 1, 2,3) (1) Alcohol dependence Current Visit: Yes Status: Chronic Qualifiers: Complication of substance-induced condition: uncomplicated (2) Opioid dependence Current Visit: Yes Status: Chronic Qualifiers: Substance use status: uncomplicated Qualified Code(s): F11.20 - Opioid dependence, uncomplicated (3) Drug induced sleep disorder Current Visit: Yes Status: Acute (4) Amputation of fifth toe, left, traumatic Current Visit: Yes Status: Chronic Qualifiers: Encounter type: sequela Qualified Code(s): S98.132S - Complete traumatic amputation of one left lesser toe, sequela - Initial Treatment Plan Initial Treatment Plan: Remeron 15 mg po hs.Will monitor progress.
[2018-03-22 17:04] LABS: URINE APPEARANCE SLCLOUDY; URINE BILIRUBIN NEGATIVE (<2.0 mg/dL); URINE COLOR AMBER; URINE GLUCOSE (UA) NEGATIVE (NEGATIVE); URINE KETONE NEGATIVE (NEGATIVE); URINE LEUK ESTERASE NEGATIVE (NEGATIVE); URINE NITRITE NEGATIVE (NEGATIVE); URINE PROTEIN NEGATIVE (NEGATIVE); URINE UROBILINOGEN NEGATIVE mg/dL (0.2-1.0)
[2018-03-22] MEDS: THIAMINE HCL 100 MG TABLET (FP) PO SCH (21:30)
[2018-03-22] MEDS: IBUPROFEN 400 MG TABLET (FP) PO PRN (21:31)
[2018-03-22] MEDS: MELATONIN 5 MG TABLETS PO PRN (21:32)
[2018-03-22] MEDS: MIRTAZAPINE 15 MG TABLET (FP) PO SCH (21:55)
[2018-03-22] MEDS: LIDOCAINE PATCH REMOVAL MC SCH (22:08)
[2018-03-23] MEDS: LIDOCAINE 5% TOPICAL PATCH TP SCH (10:27)
[2018-03-23] MEDS: PRENATAL VITAMINS W/ FOLIC ACID TABLET (FP) PO SCH (10:28)
[2018-03-23] MEDS: NICOTINE 14 MG/24 HOURS TOPICAL PATCH TD SCH (10:28)
[2018-03-23] MEDS: NIFEdipine E.R. 90 MG TABLET (FP) PO SCH (10:28)
[2018-03-23 14:30] LABS: HEMATOCRIT 40.7 % (35.4-49); HEMOGLOBIN 13.6 GM/dL (11.7-16.9); MCHC 33.3 g/dl (32.0-35.9); MEAN PLT VOLUME 8.5 fl (7.5-11.1); PLATELET COUNT 274 K/MM3 (134-434); RBC 4.52 M/mm3 (4.00-5.60); RDW 17.2 % (11.9-15.9); WHITE BLOOD COUNT 4.5 K/mm3 (4.0-10.0)
[2018-03-23] MEDS: MAGNESIUM HYDROX 2400MG/30ML ORAL SUSPENSION 30 ML CUP PO PRN (14:36)
[2018-03-23] MEDS: MINERAL OIL/PETROLAT/WATER TOPICAL CREAM 113 GM JAR TP PRN (14:37)
[2018-03-23 15:13] LABS: ALBUMIN 3.9 g/dl (3.4-5.0); ALK PHOS 90 U/L (45-117); ANION GAP 8 MMOL/L (8-16); BILIRUBIN,TOTAL 0.2 mg/dL (0.2-1); BLOOD UREA NITROGEN 17 mg/dL (7-18); CALCIUM 10.4 mg/dL (8.5-10.1); CHLORIDE 104 mmol/L (98-107); CO2 27 mmol/L (21-32); CREATININE 0.9 mg/dL (0.55-1.3); GLUCOSE,RANDOM 135 mg/dL (74-106); POTASSIUM 4.4 mmol/L (3.5-5.1); SGOT/AST 17 U/L (15-37); SGPT/ALT 21 U/L (13-61); SODIUM 139 mmol/L (136-145); TOT PROT 7.5 g/dl (6.4-8.2)
[2018-03-23] MEDS: MIRTAZAPINE 15 MG TABLET (FP) PO SCH (21:35)
[2018-03-23] MEDS: MELATONIN 5 MG TABLETS PO PRN (21:35)
[2018-03-23] MEDS: THIAMINE HCL 100 MG TABLET (FP) PO SCH (21:35)
[2018-03-23] MEDS: LIDOCAINE PATCH REMOVAL MC SCH (21:36)
[2018-03-24] MEDS: MAGNESIUM HYDROX 2400MG/30ML ORAL SUSPENSION 30 ML CUP PO PRN (06:46)
[2018-03-24] MEDS: NICOTINE 14 MG/24 HOURS TOPICAL PATCH TD SCH (10:10)
[2018-03-24] MEDS: LIDOCAINE 5% TOPICAL PATCH TP SCH (10:10)
[2018-03-24] MEDS: PRENATAL VITAMINS W/ FOLIC ACID TABLET (FP) PO SCH (10:11)
[2018-03-24] MEDS: NIFEdipine E.R. 90 MG TABLET (FP) PO SCH (10:11)
[2018-03-24] MEDS: LIDOCAINE PATCH REMOVAL MC SCH (21:29)
[2018-03-24] MEDS: MIRTAZAPINE 15 MG TABLET (FP) PO SCH (21:30)
[2018-03-24] MEDS: THIAMINE HCL 100 MG TABLET (FP) PO SCH (21:30)
[2018-03-24] MEDS: MINERAL OIL/PETROLAT/WATER TOPICAL CREAM 113 GM JAR TP PRN (21:30)
[2018-03-24] MEDS: MELATONIN 5 MG TABLETS PO PRN (21:31)
[2018-03-25] MEDS: PRENATAL VITAMINS W/ FOLIC ACID TABLET (FP) PO SCH (10:08)
[2018-03-25] MEDS: NICOTINE 14 MG/24 HOURS TOPICAL PATCH TD SCH (10:08)
[2018-03-25] MEDS: LIDOCAINE 5% TOPICAL PATCH TP SCH (10:08)
[2018-03-25] MEDS: NIFEdipine E.R. 90 MG TABLET (FP) PO SCH (10:08)
[2018-03-25] MEDS: MIRTAZAPINE 15 MG TABLET (FP) PO SCH (21:31)
[2018-03-25] MEDS: THIAMINE HCL 100 MG TABLET (FP) PO SCH (21:31)
[2018-03-25] MEDS: MELATONIN 5 MG TABLETS PO PRN (21:32)
[2018-03-25] MEDS: LIDOCAINE PATCH REMOVAL MC SCH (21:32)
[2018-03-26] MEDS: NICOTINE 14 MG/24 HOURS TOPICAL PATCH TD SCH (09:50)
[2018-03-26] MEDS: LIDOCAINE 5% TOPICAL PATCH TP SCH (09:50)
[2018-03-26] MEDS: NIFEdipine E.R. 90 MG TABLET (FP) PO SCH (09:50)
[2018-03-26] MEDS: PRENATAL VITAMINS W/ FOLIC ACID TABLET (FP) PO SCH (09:50)
[2018-03-26] MEDS: MELATONIN 5 MG TABLETS PO PRN (21:25)
[2018-03-26] MEDS: MIRTAZAPINE 15 MG TABLET (FP) PO SCH (21:25)
[2018-03-26] MEDS: THIAMINE HCL 100 MG TABLET (FP) PO SCH (21:26)
[2018-03-26] MEDS: LIDOCAINE PATCH REMOVAL MC SCH (21:54)
[2018-03-27] MEDS: PRENATAL VITAMINS W/ FOLIC ACID TABLET (FP) PO SCH (10:25)
[2018-03-27] MEDS: LIDOCAINE 5% TOPICAL PATCH TP SCH (10:25)
[2018-03-27] MEDS: NIFEdipine E.R. 90 MG TABLET (FP) PO SCH (10:25)
[2018-03-27] MEDS: NICOTINE 14 MG/24 HOURS TOPICAL PATCH TD SCH (10:26)
[2018-03-27] MEDS: THIAMINE HCL 100 MG TABLET (FP) PO SCH (21:24)
[2018-03-27] MEDS: MELATONIN 5 MG TABLETS PO PRN (21:24)
[2018-03-27] MEDS: LIDOCAINE PATCH REMOVAL MC SCH (21:24)
[2018-03-27] MEDS: MIRTAZAPINE 15 MG TABLET (FP) PO SCH (21:24)
[2018-03-28] MEDS: PRENATAL VITAMINS W/ FOLIC ACID TABLET (FP) PO SCH (10:21)
[2018-03-28] MEDS: NIFEdipine E.R. 90 MG TABLET (FP) PO SCH (10:21)
[2018-03-28] MEDS: NICOTINE 14 MG/24 HOURS TOPICAL PATCH TD SCH (10:22)
[2018-03-28] MEDS: MINERAL OIL/PETROLAT/WATER TOPICAL CREAM 113 GM JAR TP PRN (10:23)
[2018-03-28] MEDS: LIDOCAINE 5% TOPICAL PATCH TP SCH (10:23)
[2018-03-28] MEDS: MELATONIN 5 MG TABLETS PO PRN (21:23)
[2018-03-28] MEDS: THIAMINE HCL 100 MG TABLET (FP) PO SCH (21:23)
[2018-03-28] MEDS: MIRTAZAPINE 15 MG TABLET (FP) PO SCH (21:23)
[2018-03-28] MEDS: LIDOCAINE PATCH REMOVAL MC SCH (21:24)
[2018-03-29] MEDS: PRENATAL VITAMINS W/ FOLIC ACID TABLET (FP) PO SCH (10:02)
[2018-03-29] MEDS: NICOTINE 14 MG/24 HOURS TOPICAL PATCH TD SCH (10:02)
[2018-03-29] MEDS: LIDOCAINE 5% TOPICAL PATCH TP SCH (10:02)
[2018-03-29] MEDS: NIFEdipine E.R. 90 MG TABLET (FP) PO SCH (10:02)
[2018-03-29] MEDS: MIRTAZAPINE 15 MG TABLET (FP) PO SCH (21:34)
[2018-03-29] MEDS: THIAMINE HCL 100 MG TABLET (FP) PO SCH (21:34)
[2018-03-29] MEDS: MELATONIN 5 MG TABLETS PO PRN (21:35)
[2018-03-29] MEDS: LIDOCAINE PATCH REMOVAL MC SCH (21:35)
[2018-03-30] MEDS: LIDOCAINE 5% TOPICAL PATCH TP SCH (10:38)
[2018-03-30] MEDS: NICOTINE 14 MG/24 HOURS TOPICAL PATCH TD SCH (10:38)
[2018-03-30] MEDS: NIFEdipine E.R. 90 MG TABLET (FP) PO SCH (10:38)
[2018-03-30] MEDS: PRENATAL VITAMINS W/ FOLIC ACID TABLET (FP) PO SCH (10:38)
[2018-03-30] MEDS: MINERAL OIL/PETROLAT/WATER TOPICAL CREAM 113 GM JAR TP PRN (10:40)
[2018-03-30] MEDS: THIAMINE HCL 100 MG TABLET (FP) PO SCH (21:32)
[2018-03-30] MEDS: MIRTAZAPINE 15 MG TABLET (FP) PO SCH (21:32)
[2018-03-30] MEDS: MELATONIN 5 MG TABLETS PO PRN (21:32)
[2018-03-30] MEDS: LIDOCAINE PATCH REMOVAL MC SCH (21:33)
[2018-03-31] MEDS: NICOTINE 14 MG/24 HOURS TOPICAL PATCH TD SCH (10:24)
[2018-03-31] MEDS: LIDOCAINE 5% TOPICAL PATCH TP SCH (10:24)
[2018-03-31] MEDS: PRENATAL VITAMINS W/ FOLIC ACID TABLET (FP) PO SCH (10:24)
[2018-03-31] MEDS: NIFEdipine E.R. 90 MG TABLET (FP) PO SCH (10:25)
[2018-03-31] MEDS: MIRTAZAPINE 15 MG TABLET (FP) PO SCH (21:35)
[2018-03-31] MEDS: MELATONIN 5 MG TABLETS PO PRN (21:35)
[2018-03-31] MEDS: THIAMINE HCL 100 MG TABLET (FP) PO SCH (21:35)
[2018-03-31] MEDS: LIDOCAINE PATCH REMOVAL MC SCH (21:36)
[2018-04-01] MEDS: NICOTINE 14 MG/24 HOURS TOPICAL PATCH TD SCH (09:48)
[2018-04-01] MEDS: NIFEdipine E.R. 90 MG TABLET (FP) PO SCH (09:48)
[2018-04-01] MEDS: LIDOCAINE 5% TOPICAL PATCH TP SCH (09:48)
[2018-04-01] MEDS: PRENATAL VITAMINS W/ FOLIC ACID TABLET (FP) PO SCH (09:48)
[2018-04-01] MEDS: LIDOCAINE PATCH REMOVAL MC SCH (21:28)
[2018-04-01] MEDS: THIAMINE HCL 100 MG TABLET (FP) PO SCH (21:28)
[2018-04-01] MEDS: MIRTAZAPINE 15 MG TABLET (FP) PO SCH (21:28)
[2018-04-01] MEDS: MELATONIN 5 MG TABLETS PO PRN (21:28)
--- NOTE | 2018-04-02 07:03 | PN ---
Psychiatric Progress Note Vital Signs: Vital Signs Period Temp Pulse Resp BP Sys/Moon Pulse Ox Last 24 Hr 97.4 F 81-87 16-18 134-140/79-81 Date of Session: 04/02/18 Chief Complaint:: Discharge Note HPI: Patient addressing Alcohol and Opioid Dependence comorbid with Substance- Induced Sleep Disorder ROS: S/P Traumatic amputation left fifth toe Current Medications: Active Medications Generic Name Dose Route Start Last Admin Trade Name Freq PRN Reason Stop Dose Admin Acetaminophen 650 mg 03/22/18 14:41 Tylenol - PO Q4H PRN FEVER Al Hydroxide/Mg Hydroxide 30 ml 03/22/18 14:41 Mylanta Oral Suspension - PO Q6H PRN DYSPEPSIA Eucalyptus/Menthol/Phenol/Sorbitol 1 each 03/22/18 14:41 Cepastat Lozenge - MM Q4H PRN SORE THROAT Guaifenesin 10 ml 03/22/18 14:41 Robitussin Dm - PO Q6H PRN COUGH Hydroxyzine Pamoate 50 mg 03/22/18 14:41 Vistaril - PO Q4H PRN AGITATION Ibuprofen 400 mg 03/22/18 14:41 03/22/18 21:31 Motrin - PO 400 mg Q6H PRN Administration Pain level 4-6 Lidocaine 2 patch 03/23/18 10:00 04/01/18 09:48 Lidoderm Patch - TP 2 patch DAILY MAURA Administration Loperamide HCl 4 mg 03/22/18 14:41 Imodium - PO Q6H PRN DIARRHEA Magnesium Citrate 300 ml 03/22/18 14:41 03/24/18 10:11 Citroma - PO 300 ml Q48H PRN Administration CONSTIPATION Magnesium Hydroxide 30 ml 03/22/18 14:41 03/24/18 06:46 Milk Of Magnesia - PO 30 ml DAILY PRN Administration CONSTIPATION Melatonin 5 mg 03/22/18 22:00 04/01/18 21:28 Melatonin PO 5 mg HS PRN Administration INSOMNIA Mirtazapine 15 mg 03/22/18 22:00 04/01/18 21:28 Remeron - PO 15 mg HS MAURA Administration Miscellaneous 2 each 03/22/18 22:00 04/01/18 21:28 Lidoderm Patch Removal MC 2 each DAILY@2200 MAURA Administration Multi-Ingredient Lotion 1 applic 03/22/18 14:42 03/30/18 10:40 Eucerin (Small Jar) - TP 1 applic BID PRN Administration DRY SKIN Nicotine 14 mg 03/23/18 10:00 04/01/18 09:48 Nicoderm Patch - TD 14 mg DAILY MAURA Administration Nicotine Polacrilex 2 mg 03/22/18 14:41 Nicorette Gum - BUC Q2H PRN NICOTINE REPLACEMENT RX Nifedipine 90 mg 03/23/18 10:00 04/01/18 09:48 Procardia Xl - PO 90 mg DAILY MAURA Administration Multivit/Folic Acid/Iron 1 tab 03/23/18 10:00 04/01/18 09:48 Vitamins (Sjr) - PO 1 tab DAILY MAURA Administration Pseudoephedrine/Triprolidine 1 combo 03/22/18 14:41 Actifed - PO TID PRN NASAL CONGESTION Thiamine HCl 100 mg 03/22/18 22:00 04/01/18 21:28 Vitamin B1 - PO 100 mg HS MAURA Administration Current Side Effect: No Lab tests ordered: Yes Lab tests reviewed: Yes Provider note:: Patient will complete this program on 04/03/18. He has met his treatment goals and will continue to address his issues in outpatient treatment at [facility]. 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 He responded well to Remeron 15 mg po HS. Script fro that medication will be electronically transmitted to [facility] at [address] [place] [address]. He is stable for discharge on 04/03/18 Total face to face time:: 35 Mental Status Exam - Mental Status Exam Alert and Oriented to: Time, Place, Person Cognitive Function: Fair Patient Appearance: Well Groomed Mood: Hopeful, Euthymic Affect: Appropriate Patient Behavior: Cooperative Speech Pattern: Clear Voice Loudness: Normal Thought Process: Intact, Goal Oriented Thought Disorder: Not Present Hallucinations: Denies Suicidal Ideation: Denies Homicidal Ideation: Denies Insight/Judgement: Fair Sleep: Fair Appetite: Good Muscle strength/Tone: Normal Gait/Station: Normal Psychiatric Treatment Plan - Problem List (1) Alcohol dependence Current Visit: Yes Qualifiers: Complication of substance-induced condition: uncomplicated (2) Opioid dependence Current Visit: Yes Qualifiers: Substance use status: uncomplicated Qualified Code(s): F11.20 - Opioid dependence, uncomplicated (3) Substance-induced sleep disorder Current Visit: Yes (4) Amputation of fifth toe, left, traumatic Current Visit: Yes Qualifiers: Encounter type: sequela Qualified Code(s): S98.132S - 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
[2018-04-02] MEDS: PRENATAL VITAMINS W/ FOLIC ACID TABLET (FP) PO SCH (09:55)
[2018-04-02] MEDS: NIFEdipine E.R. 90 MG TABLET (FP) PO SCH (09:55)
[2018-04-02] MEDS: LIDOCAINE 5% TOPICAL PATCH TP SCH (09:55)
[2018-04-02] MEDS: NICOTINE 14 MG/24 HOURS TOPICAL PATCH TD SCH (09:55)
[2018-04-02] MEDS: IBUPROFEN 400 MG TABLET (FP) PO PRN (09:56)
[2018-04-02] MEDS: MIRTAZAPINE 15 MG TABLET (FP) PO SCH (21:33)
[2018-04-02] MEDS: THIAMINE HCL 100 MG TABLET (FP) PO SCH (21:33)
[2018-04-02] MEDS: MELATONIN 5 MG TABLETS PO PRN (21:33)
[2018-04-02] MEDS: LIDOCAINE PATCH REMOVAL MC SCH (21:34)
[2018-04-03 06:56] VITALS: TEMP 98.4
[2018-04-03] MEDS: LIDOCAINE 5% TOPICAL PATCH TP SCH (10:23)
[2018-04-03] MEDS: NICOTINE 14 MG/24 HOURS TOPICAL PATCH TD SCH (10:24)
[2018-04-03] MEDS: PRENATAL VITAMINS W/ FOLIC ACID TABLET (FP) PO SCH (10:26)
[2018-04-03] MEDS: NIFEdipine E.R. 90 MG TABLET (FP) PO SCH (10:26)
[2018-04-03 12:03] VITALS: BP 133/77; PULSE 113
== END 2018-04-03 10:45 | disposition home or self-care (01) | DRG 895 ==
LOC: YASAS 10:34 → Y5N 15:11
PROVIDERS: ADMIT Psychiatry & Neurology Psychiatry; ATTEND Psychiatry & Neurology Psychiatry
PROC: HZ42ZZZ Group Counseling for Substance Abuse Treatment, Cognitive-Behavioral (ICD-10-PCS; principal; 2018-03-22)
DX: F11.20 Opioid dependence, uncomplicated (principal); F19.282 Other psychoactive substance dependence with psychoactive substance-induced sleep disorder; F10.20 Alcohol dependence, uncomplicated; F17.210 Nicotine dependence, cigarettes, uncomplicated; F32.9 Major depressive disorder, single episode, unspecified; I10 Essential (primary) hypertension; S98.1 Traumatic amputation of one toe
CPT/HCPCS: 36415; 80053; 81003; 85027; 86593; 87389